=== PATIENT | female | born 1985 | race Caucasian/White ===

== ENCOUNTER 2017-04-28 22:23 | Emergency (ER) | payer OTHER ==
[2017-04-28 23:03] VITALS: TEMP 100; O2SAT 98
[2017-04-28] MEDS ORDERED: LORAZEPAM 0.5 MG TAB PO ONE (23:21)
[2017-04-28] MEDS ORDERED: LORAZEPAM 0.5 MG TAB ONE (23:26)
[2017-04-28 23:48] LABS: BASOPHILS % (AUTO) 0 % (0-3); EOSINOPHILS % (AUTO) 1 % (0-9); HEMATOCRIT 38 % (35-47); MEAN CORPUSCULAR HGB CONC 36.6 gm/dl (32.0-36.0); MEAN CORPUSCULAR VOLUME 87 fL (81-99); MONOCYTES % (AUTO) 9.1 % (0-12); NEUTROPHILS % (AUTO) 74.7 % (37-80)
[2017-04-29 00:10] LABS: ALBUMIN 3.5 gm/dl (3.4-5.0); ALT 20 IU/L (14-63); CALCIUM 8.8 mg/dl (8.5-10.1); GLOM FILT RATE 80 mL/min (>60); POTASSIUM 3.4 mMol/L (3.5-5.1); SODIUM 142 mMol/L (136-145)
[2017-04-29 01:22] VITALS: BP 113/75; PULSE 101; RESP 26
== END 2017-04-29 01:35 | disposition home or self-care (01) | DRG 880 ==
LOC: ED 22:23
DX: F41.0 Panic disorder [episodic paroxysmal anxiety] (principal)
CPT/HCPCS: 36415; 80053; 84484; 85025; 93005; 99284